=== PATIENT | male | born 1985 | race Caucasian/White ===

== ENCOUNTER 2019-08-17 21:07 | Emergency (ER) | payer OTHER, SELFPAY ==
--- NOTE | ~2019-08-17 | XR_ITS ---
EXAMINATION: XR forearm RT 2V INDICATION: Right forearm pain TECHNIQUE: Two views of the right forearm are obtained. COMPARISON: None available FINDINGS: There is no fracture, dislocation, or subluxation. The bones, soft tissues, and joint space s are normal. IMPRESSION: 1. No acute osseous abnormality. Reviewed, dictated and finalized at location A.
--- NOTE | ~2019-08-17 | XR_ITS ---
EXAMINATION: XR elbow RT 2V INDICATION: Right elbow pain TECHNIQUE: Two views of the right elbow were obtained. COMPARISON: None available FINDINGS: There is no fracture, dislocation, or subluxation. The bones, soft tissues, and joint space s are normal. IMPRESSION: 1. No acute osseous abnormality. Reviewed, dictated and finalized at location A.
[2019-08-17 21:17] VITALS: BP 143/86; PULSE 91; RESP 16; TEMP 37.1; O2SAT 97
[2019-08-17] MEDS: ACETAMINOPHEN 500 MG TABLET 1000 MG PO (21:28)
--- NOTE | 2019-08-17 21:56 | ED.UPPEXIN ---
HPI - Extremity Injury (Upper) General Chief Complaint: Extremity Injury, Upper Stated Complaint: arm pain Source: patient Mode of arrival: ambulatory Limitations: no limitations History of Present Illness HPI narrative: Is a 33-year-old male that presents to the emergency department with right elbow and forearm pain after he fell earlier today trying to brace himself he injured his right elbow and forearm there is some pain that he rates about a 5/10 with a decreased range of motion secondary to pain and inflammation. Has a strong brisk radial pulse on the right with no other injuries. There is some point tenderness in his elbow and his mid forearm but has good range of motion in his right wrist. complaint: injury to: right, elbow and forearm Onset (ago): hour(s) Other Extremity Injury: Right: elbow and forearm Other injuries: none Handedness: right Place: home Severity: moderate Severity scale (1-10): 5 Relieving factors: cold therapy Exacerbating factors: immobilization and movement of extremity Context: fall Related Data Home Medications Medication Instructions Recorded Confirmed No Home Medications 08/17/19 08/17/19 Allergies Allergy/AdvReac Type Severity Reaction Status Date / Time aspirin Allergy Mild Verified 01/05/17 20:20 codeine Allergy Mild Verified 01/05/17 20:20 Penicillins Allergy Mild Verified 01/05/17 20:20 Review of Systems Review of Systems: All systems reviewed & are unremarkable except as noted in HPI and below PMFSH Past Medical History Medical History Patient denies medical problems Exam Const: General: no acute distress and alert Orientation/consciousness: patient oriented x3 HENMT: Head: normal to inspection Eyes: Conjunctivae: conjunctivae normal Pupils: Equal, round and reactive pupils present EOM: EOMs intact bilaterally Neck: Neck: normal visual inspection, no lymphadenopathy and no meningeal signs Chest: Chest palpation & inspection: normal inspection of the chest Resp: Effort & Inspection: normal respiratory effort Auscultation: clear to auscultation bilaterally Cardio: Rate: regular rate Rhythm: regular rhythm GI: GI Palp: Yes Soft to palpation Skin: General skin exam: normal color Rashes: no rashes Neuro: General: patient oriented x3, moves all extremities and no meningeal signs Extrem: Other: right elbow and forearm pain with mild swelling and point tenderness Psych: Mental Status: mental status grossly normal Course Course Emergency Course: patient having pain rated about a 5/10 he refused any IM injections of pain medication. Was given 1 g of Tylenol, with some Esequiel wrap and a sling for comfort. Vital Signs Vital signs: Vital Signs Temperature 37.1 C 08/17/19 21:17 Pulse Rate 91 08/17/19 21:17 Respiratory Rate 16 08/17/19 21:17 Blood Pressure 143/86 H 08/17/19 21:17 Pulse Oximetry 97 08/17/19 21:17 Temperature 37.1 C 08/17/19 21:17 Pulse Rate 91 08/17/19 21:17 Respiratory Rate 16 08/17/19 21:17 Blood Pressure 143/86 H 08/17/19 21:17 Pulse Oximetry 97 08/17/19 21:17 Critical Care Time Critical Care Time Critical Care Time: No Discharge Plan Discharge Clinical Impression: Elbow strain Qualifiers: Encounter type: initial encounter Laterality: right Qualified Code(s): S46.911A - Strain of unspecified muscle, fascia and tendon at shoulder and upper arm level, right arm, initial encounter Patient Disposition: Home, Self-Care Condition: Stable Instructions: Antibiotic Form, How to Use a Sling (ED), Muscle Strain (DC) Additional Instructions: can take Tylenol or Motrin [id number] as needed for pain and inflammation, follow-up with primary care physician if symptoms persist or worsen. Prescriptions: No Action No Home Medications RF: 0 Follow-up/Referrals: Ashish Bautista MD [Primary Care Provider] - Time of
[2019-08-17 22:03] VITALS: RESP 16
== END 2019-08-17 22:07 | disposition home or self-care (01) ==
PROVIDERS: Emergency Provider Emergency Medicine
DX: S46.911A Strain of unspecified muscle, fascia and tendon at shoulder and upper arm level, right arm, initial encounter (principal); W19.XXXA Unspecified fall, initial encounter
CPT/HCPCS: 73070; 73090; 99282; 99283; A4565

== ENCOUNTER 2021-05-11 14:10 | Emergency (ER) | payer OTHER, SELFPAY ==
--- NOTE | ~2021-05-11 | XR_ITS ---
XR ankle LT min 3V, XR foot LT min 3V 05/11/2021 14:41 INDICATION: Left ankle and foot pain after injury PROCEDURE: 4 views of the left ankle and 4 views of the left foot COMPARISON: No prior studies for comparison. FINDINGS: There is a subtle avulsion fracture involving the anterior lateral margin of the calcaneus with adjacent soft tissue swelling. Ankle mortise intact. No foreign bodies are identified. IMPRESSION: 1: Avulsion fracture anterior lateral margin of the calcaneus. Reviewed, dictated and finalized at location B. IMPRESSION: 1: Avulsion fracture anterior lateral margin of the calcaneus.
[2021-05-11 14:17] VITALS: BP 153/106; PULSE 110; RESP 18; TEMP 36.6; O2SAT 98
--- NOTE | 2021-05-11 14:30 | ED.LOWEXIN ---
HPI - Extremity Injury (Lower) General Chief Complaint: Extremity Injury, Lower Stated Complaint: L foot pain Time Seen by Provider: 05/11/21 14:17 Source: patient Mode of arrival: wheelchair Limitations: no limitations History of Present Illness HPI Narrative: This is a 35 year old male that presents to the ER for left ankle pain after an injury today. Reports he tripped over a dog toy and fell down two steps. He did not hit his head or lose consciousness. No other injuries. Reports pain and swelling in the left foot and ankle. Reports decreased ROM in the ankle due to pain. Denies numbness. Related Data Allergies Allergy/AdvReac Type Severity Reaction Status Date / Time Penicillins Allergy Unknown Unknown Verified 05/03/17 13:30 Review of Systems Review of Systems: CONSTITUTIONAL: Denies fever MUSCULOSKELETAL: Reports joint pain, and myalgia. NEUROLOGIC: Denies numbness All systems reviewed & are unremarkable except as noted in HPI and below PMFSH Past Medical History Medical History (Updated 05/11/21 @ 15:13 by Verónica Hickman PA-C) No active medical problems Family History Family History (Updated 05/03/17 @ 13:33 by DOCTOR UNKNOWN) Other Diabetes mellitus Hypertension Social History Social History Smoking status: Heavy tobacco smoker Alcohol intake: current Exam Narrative: GENERAL: Well-appearing, well-nourished, and in no acute distress. HEAD: Normocephalic, atraumatic. CHEST: No respiratory distress. EXTREMITIES: Decreased ROM in the left ankle due to pain. No edema or obvious deformity. Normal DP pulses. Normal sensation SKIN: Warm, dry, no rash. NEURO: No focal deficits. Alert and oriented x3. PSYCH: Normal mood and affect Course Consultations Consultation #1: Spoke with Dr. Piña about patient and workup who will follow up in clinic. Patient will be placed in a splint and given crutches Date: 05/11/21 Time: 15:15 Vital Signs Vital signs: Vital Signs Temperature 97.9 F 05/11/21 14:17 Pulse Rate 110 H 05/11/21 14:17 Respiratory Rate 18 05/11/21 14:17 Blood Pressure 153/106 H 05/11/21 14:17 Pulse Oximetry 98 05/11/21 14:17 Temperature 97.9 F 05/11/21 14:17 Pulse Rate 110 H 05/11/21 14:17 Respiratory Rate 18 05/11/21 14:17 Blood Pressure 153/106 H 05/11/21 14:17 Pulse Oximetry 98 05/11/21 14:17 Procedures Orthopedic Splinting/Casting Injury #1: Splinting/Casting Date: 05/11/21 Splinting/Casting Time: 15:16 Side: left Lower Extremity Injury Location: foot Splint: customized in ED OCL: short leg Pre-Procedure Neuro Vascular Exam: normal Post-Procedure Neuro Vascular Exam: normal Other Orthopedic Equipment: crutches MDM - Extremity Injury (Lower) MDM Narrative Medical decision making narrative: Patient presents to the emergency department for left foot and ankle pain after an injury today. Patient is neurovascularly intact. Left foot x-ray shows an avulsion fracture anterior lateral margin of the calcaneus. Spoke with Dr. Piña about patient and workup who will follow up in clinic. Patient will be placed in a splint and given crutches. Patient is stable and felt appropriate for further outpatient evaluation. He was given warnings to return to the ER Imaging Data Radiologist's impression: ITS Impressions Ankle X-Ray 05/11/21 14:47 IMPRESSION: 1: Avulsion fracture anterior lateral margin of the calcaneus. Foot X-Ray 05/11/21 14:47 IMPRESSION: 1: Avulsion fracture anterior lateral margin of the calcaneus. Critical Care Time Critical Care Time Critical Care Time: No Discharge Plan Discharge Clinical Impression: Avulsion fracture of calcaneus Qualifiers: Encounter type: initial encounter Calcaneus location: tuberosity Fracture type: closed Fracture alignment: displaced Laterality: left Qualified Code(s): S92.032A - Displaced avulsion fracture of tuberosity of
[2021-05-11] MEDS: traMADol HCL (*CRX) 50 MG TABLET PO (14:31)
== END 2021-05-11 16:01 | disposition home or self-care (01) ==
PROVIDERS: Emergency Provider Emergency Medicine
DX: S92.022A Displaced fracture of anterior process of left calcaneus, initial encounter for closed fracture (principal); F17.200 Nicotine dependence, unspecified, uncomplicated; W18.09XA Striking against other object with subsequent fall, initial encounter; W10.9XXA Fall (on) (from) unspecified stairs and steps, initial encounter
CPT/HCPCS: 29515; 73610; 73630; 99284; A9270